=== PATIENT | male | born 1990 | race Caucasian/White ===

== ENCOUNTER 2018-07-26 08:39 | Emergency (ER) | payer OTHER ==
[~2018-07-26] VITALS: Ht 167.6 cm; Wt 68.0 kg
[2018-07-26 08:40] VITALS: BP 138/108
[2018-07-26] MEDS ORDERED: MORPHINE SULFATE 4 MG/ML CPJ (NOT FOR IM USE) IV ONE (09:45)
[2018-07-26] MEDS ORDERED: KETOROLAC 30MG/ML VIAL IV ONE (09:45)
[2018-07-26] MEDS ORDERED: SODIUM CHLORIDE 0.9% 1,000 ML IV ONE (09:45)
[2018-07-26 11:13] LABS: CHLORIDE 102 mEq/L (98-107)
[2018-07-26 11:41] LABS: BASOPHILS % 0.3 % (0.0-2.0); EOSINOPHILS % 0.3 % (0.0-5.0); HEMATOCRIT. 47.4 % (42.0-52.0); HEMOGLOBIN. 16.4 g/dL (14.0-18.0); LYMPHOCYTES % 15.8 % (20.0-50.0); MEAN CORPUSCULAR HEMOGLOBIN 30.1 pg (28.0-32.0); MEAN CORPUSCULAR VOLUME 87.2 fL (80.0-94.0); MEAN PLATELET VOLUME 7.5 fl (7.4-10.4); MONOCYTES % 7.4 % (2.0-8.0); NEUTROPHILS % 76.2 % (40.0-76.0); PLATELET 373 x1000/uL (130-400); RED BLOOD CELL COUNT 5.44 mill/uL (4.7-6.1); RED CELL DISTRIBUTION WIDTH 13.9 % (11.6-14.6)
[2018-07-26] MEDS ORDERED: IOHEXOL-350 100 ML BOTTLE ONE (11:46)
== END 2018-07-26 12:54 | disposition home or self-care (01) ==
LOC: ER 08:55
DX: S81.811A Laceration without foreign body, right lower leg, initial encounter (principal); S00.03XA Contusion of scalp, initial encounter; S06.0X1A Concussion with loss of consciousness of 30 minutes or less, initial encounter; X58.XXXA Exposure to other specified factors, initial encounter; Y93.89 Activity, other specified; Y92.89 Other specified places as the place of occurrence of the external cause; Y99.8 Other external cause status
CPT/HCPCS: 36415; 70450; 71045; 72125; 72170; 72191; 73590; 73706; 80048; 85025; 93005; 99285; J2270; J7030; Q9967; J1885

== ENCOUNTER 2021-06-11 03:02 | Emergency (ER) | payer MEDICAID, SELFPAY ==
[~2021-06-11] VITALS: Ht 170.2 cm; Wt 82.0 kg
[2021-06-11] MEDS ORDERED: BENZONATATE 100MG CAPSULE PO ONE (03:45)
[2021-06-11] MEDS ORDERED: IBUPROFEN 600MG TABLET PO ONE (03:45)
[2021-06-11 04:11] VITALS: BP 134/87
== END 2021-06-11 04:14 | disposition home or self-care (01) ==
LOC: ER 03:02
DX: U07.1 COVID-19 (principal)
CPT/HCPCS: 99283